=== PATIENT | female | born 1965 | race Caucasian/White ===

== ENCOUNTER 2019-09-24 10:54 | Inpatient (IN) | payer OTHER ==
--- NOTE | 2019-09-24 10:59 | PDOC ---
History of Present Illness - General Chief Complaint: Seizure Stated Complaint: BITIING LIPS? Time Seen by Provider: 09/24/19 10:58 History Source: Patient, Family Exam Limitations: No Limitations - History of Present Illness Initial Comments: 54 yo F history HL (diet-controlled) presents with multiple episodes of AMS. As per family at bedside, on two occasions since yesterday they have witnessed her chewing her upper lip but not responding when they spoke to her. She does not recall either event, she states she thought she was sleeping. She has mild swelling of the upper lip, but denies any pain at present. Denies any falls, no other injuries. Each time it happened, a family member witnessed it, tried to interact with her, but she was not responsive. No history of seizures. Denies any headache. No AM headaches when she wakes up. No weakness, numbness, vision changes. No recent illness. Past History - Past Medical History Allergies/Adverse Reactions: Allergies Allergy/AdvReac Type Severity Reaction Status Date / Time No Known Allergies Allergy Verified 09/24/19 10:56 Home Medications: Ambulatory Orders levETIRAcetam [Keppra -] 500 mg PO BID #60 tablet 09/24/19 Review of Systems - Review of Systems Able to Perform ROS?: Yes Comments:: GENERAL/CONSTITUTIONAL: No fever or chills. No weakness. HEAD, EYES, EARS, NOSE AND THROAT: No change in vision. No ear pain or discharge. No sore throat. CARDIOVASCULAR: No chest pain or shortness of breath. RESPIRATORY: No cough, wheezing, or hemoptysis. GASTROINTESTINAL: No nausea, vomiting, diarrhea or constipation. GENITOURINARY: No dysuria, frequency, or change in urination. MUSCULOSKELETAL: No joint or muscle swelling or pain. No neck or back pain. SKIN: No rash. NEUROLOGIC: No headache, vertigo, loss of consciousness, or change in strength/ sensation. ENDOCRINE: No increased thirst. No abnormal weight change. HEMATOLOGIC/LYMPHATIC: No anemia, easy bleeding, or history of blood clots. ALLERGIC/IMMUNOLOGIC: No hives or skin allergy. *Physical Exam - Physical Exam GENERAL: Awake, alert, and fully oriented, in no acute distress HEAD: No signs of trauma EYES: PERRLA, EOMI, sclera anicteric, conjunctiva clear ENT: Auricles normal inspection, hearing grossly normal, nares patent, oropharynx clear without exudates. Moist mucosa. +Mild swelling of the upper lip on R side, no open lesions. NECK: Normal ROM, supple, no lymphadenopathy, JVD, or masses LUNGS: Breath sounds equal, clear to auscultation bilaterally. No wheezes, and no crackles HEART: Regular rate and rhythm, normal S1 and S2, no murmurs, rubs or gallops ABDOMEN: Soft, nontender, normoactive bowel sounds. No guarding, no rebound. No masses EXTREMITIES: Normal range of motion, no edema. No clubbing or cyanosis. No cords, erythema, or tenderness NEUROLOGICAL: Cranial nerves II through XII grossly intact. Normal speech, normal gait. Motor and sensation intact SKIN: Warm, dry, normal turgor, no rashes or lesions noted. Heart Score/ECG Review - ECG Impressions Comment:: EKG read 12:15- NSR [address]/T changes ED Treatment Course - LABORATORY CBC & Chemistry Diagram: 09/24/19 11:34 09/24/19 11:34 Medical Decision Making - Medical Decision Making 09/24/19 11:15 Symptoms are suspicious for new onset seizures. Will obtain labs, CTH, and will d/w neurology. 09/24/19 12:[address] Jung. 09/24/19 13:39 Case d/w Dr. Jung, recommended starting patient on keppra. Will have her f/u in his office. Also recommended that she not drive until she is evaluated and properly on medication. Will d/w patient and family. 09/24/19 13:59 Pt experienced another partial seizure just now. Self-limited. Ativan given now. IV fluids and keppra given. 09/24/19 15:23 Case d/w Dr. Caldwell, will admit in light of multiple seizures over the past 24 hours, no prior history. Discharge - Discharge Information Problems reviewed: Yes Clinical Impression/Diagnosis: New onset seizure Condition: Stable - Admission Yes - Additional Discharge Information Prescriptions: levETIRAcetam [Keppra -] 500 mg PO BID #60 tablet - Follow up/Referral Referrals: David Jung MD [Staff Physician] - - Patient Discharge Instructions Patient Printed Discharge Instructions: DI for Seizure (Not Epilepsy/Seizure Disorder) Additional Instructions: Please call Dr. Jung's office on Thursday to schedule an appointment. If the seizures return, please return to the ER immediately. Take the medication as prescribed, as it should suppress the seizures. Llame a la oficina del Dr. Jung el es para programar lela payton. Si las convulsiones regresan, regrese a la jm de emergencias inmediatamente. [place] el medicamento segn lo prescrito, ya que debera suprimir las convulsiones. - Post Discharge Activity
[2019-09-24 11:49] LABS: BASO % 0.2 % (0-2.0); EOS % 0.4 % (0-4.5); HEMATOCRIT 39.3 % (32.4-45.2); HEMOGLOBIN 13.1 GM/dl (10.7-15.3); MCH 31.1 pg (25.7-33.7); MCHC 33.2 g/dl (32.0-36.0); MEAN CELL VOLUME 93.8 fl (80-96); MEAN PLT VOLUME 8.3 fl (7.5-11.1); NEUT % 83.4 % (42.8-82.8); PLATELET COUNT 311 K/MM3 (134-434); RDW 12.5 % (11.6-15.6); WHITE BLOOD COUNT 7.6 K/mm3 (4.0-10.8)
[2019-09-24 11:53] LABS: INR 1.13 (0.82-1.09); PROTHROMBIN TIME (PATIENT) 12.6 SEC (10.2-13.0)
[2019-09-24 11:58] LABS: ALBUMIN 4.2 g/dl (3.4-5.0); BILIRUBIN,TOTAL 0.9 mg/dl (0.2-1); CREATININE 0.6 mg/dl (0.55-1.3); TOT PROT 7.7 g/dl (6.4-8.2)
[2019-09-24] MEDS ORDERED: levETIRAcetam 500 MG TABLET (FP) PO ONE ×2 (13:35→13:36)
[2019-09-24] MEDS ORDERED: LORazepam 2 MG/ML SDV VIAL ONE (13:57)
[2019-09-24] MEDS ORDERED: levETIRAcetam 500 MG/5 ML INJECTION VIAL IVPB ONE (13:58)
[2019-09-24] MEDS ORDERED: SODIUM CHLORIDE 1,000 ML IV STA (13:59)
[2019-09-24] MEDS ORDERED: ONDANSETRON 4 MG/2 ML VIAL IVPUSH PRN (15:33)
--- NOTE | 2019-09-24 15:37 | PN ---
Progress Note, Physician Chief Complaint: New onset seizure History of Present Illness: 54 years old female no significant past medical history, today presents with the family as per family patient has multiple episodes of altered mental status yesterday, family witnessed her chewing her upper lip, patient unable to recall any event and she thought that she was sleeping patient has mild swelling of the upper lip but denies any pain or swelling, no head trauma, no toxic epi denies any fever, patient denies any headache nausea vomiting visual changes or any focal neuro or sensory weakness, in the ED neurology was consulted recommended discharge the patient on p.o. Keppra but she had a witnessed seizure so being admitted for further evaluation, in the ED CBC, BMP, CT head, liver functions are normal. - Objective Vital Signs: Vital Signs Temperature 98.5 F 09/24/19 13:29 Pulse Rate 72 09/24/19 15:15 Respiratory Rate 16 09/24/19 15:15 Blood Pressure 105/66 09/24/19 15:15 O2 Sat by Pulse Oximetry (%) 100 09/24/19 15:15 Labs: CBC, BMP 09/24/19 11:34 09/24/19 11:34 INR, PTT INR 1.13 (0.82-1.09) 09/24/19 11:34
--- NOTE | 2019-09-24 15:43 | HP ---
Admitting History and Physical - Admission Chief Complaint: Episodes of altered mental status with spontaneous lip chewing History of Present Illness: 54 years old female no significant past medical history, today presents with the family as per family patient has 2 episodes of altered mental status as per son today am , he witnessed her chewing her upper lip subsequently became confused and disoriented for some time after that after that she had second episode patient unable to recall any event and she thought that she was sleeping patient has mild swelling of the upper lip but denies any pain as per son for past 1 year patient has been having spells of disorientation, no H/O head trauma, fever, , incontinence or focal motor weakness, patient denies any headache nausea vomiting visual changes or any focal motor or sensory weakness, in the ED neurology was consulted recommended discharge the patient on p.o. Keppra but she had a witnessed seizure so being admitted for further evaluation , in the ED CBC, BMP, CT head, liver functions are normal. History Source: Patient, Family Member - Smoking History Smoking history: Never smoked Have you smoked in the past 12 months: No - Alcohol/Substance Use Hx Alcohol Use: No Home Medications - Allergies Allergies/Adverse Reactions: Allergies Allergy/AdvReac Type Severity Reaction Status Date / Time No Known Allergies Allergy Verified 09/24/19 10:56 - Home Medications Home Medications: Ambulatory Orders levETIRAcetam [Keppra -] 500 mg PO BID #60 tablet 09/24/19 Family Medical History Family Hx Cardiac Disorders: Mother Family Hx Diabetes: Father Review of Systems - Review of Systems Constitutional: reports: Malaise. denies: Chills, Diaphoresis, Fever, Lethargy Eyes: reports: Other (Confusion episodes). denies: Blind Spots, Blurred Vision , Double Vision, Eye Pain, Floaters, Photophobia, Recent Change in Vision HENT: denies: Difficult Swallowing, Ear Discharge Neck: denies: Decreased ROM, Lumps, Pain on Movement, Stiffness Cardiovascular: denies: Chest Pain, Edema, Palpitations, Shortness of Breath Respiratory: denies: Cough, Exercise Intolerance, Hemoptysis, Orthopnea Gastrointestinal: denies: Abdominal Pain, Bloating, Constipation, Diarrhea Genitourinary: denies: Burning, Discharge, Dysuria, Flank Pain, Frequency, Incontinence, Lesions, Menses, Pain Musculoskeletal: denies: Back Pain, Crepitus, Decreased ROM, Extremity Pain Integumentary: denies: Blister, Bruising, Change in Color Neurological: reports: Change in LOC, Confusion, Seizure. denies: Change in Speech, Headache, Incoordination, Numbness Endocrine: denies: Excessive Sweating, Flushing, Increased Hunger Hematology/Lymphatic: denies: Easily Bruised, Excessive Bleeding, Swollen Glands Physical Examination Vital Signs: Vital Signs Temperature 98.5 F 09/24/19 13:29 Pulse Rate 72 09/24/19 15:15 Respiratory Rate 16 09/24/19 15:15 Blood Pressure 105/66 09/24/19 15:15 O2 Sat by Pulse Oximetry (%) 100 09/24/19 15:15 General: Middle-aged female , sleeping comfortable, not in distress HEENT; Swelling of upper ;ip, mucous membranes moist, no anemia, no jaundice, PERRLA, no nystagmus Neck: No JVD, supple, no bruit, thyroid palpably normal, normal carotid pulsations. Chest: Non-tender, clear to auscultation bilaterally CVS: S1-S2 regular no murmur/gallop/rub Abdomen: Non-distended, soft, bowel sounds present. Extremities: No edema., No cough tenderness, pulses present [facility] ATTENDANT: Confused droqwsy, , no gross motor sensory deficit Labs: CBC, BMP 09/24/19 11:34 09/24/19 11:34 CBC,CMP WBC 7.6 K/mm3 (4.0-10.8) 09/24/19 11:34 RBC 4.20 M/mm3 (3.60-5.2) 09/24/19 11:34 Hgb 13.1 GM/dl (10.7-15.3) 09/24/19 11:34 Hct 39.3 % (32.4-45.2) 09/24/19 11:34 MCV 93.8 fl (80-96) 09/24/19 11:34 MCH 31.1 pg (25.7-33.7) 09/24/19 11:34 MCHC 33.2 g/dl (32.0-36.0) 09/24/19 11:34 RDW 12.5 % (11.6-15.6) 09/24/19 11:34 Plt Count 311 K/MM3 (134-434) 09/24/19 11:34 MPV 8.3 fl (7.5-11.1) 09/24/19 11:34 Absolute Neuts (auto) 6.4 K/mm3 09/24/19 11:34 Neutrophils % 83.4 % (42.8-82.8) H 09/24/19 11:34 Lymphocytes % 13.0 % (8-40) 09/24/19 11:34 Monocytes % 3.0 % (3.8-10.2) L 09/24/19 11:34 Eosinophils % 0.4 % (0-4.5) 09/24/19 11:34 Basophils % 0.2 % (0-2.0) 09/24/19 11:34 Sodium 132 mmol/L (136-145) L 09/24/19 11:34 Potassium 4.0 mmol/L (3.5-5.1) 09/24/19 11:34 Chloride 102 mmol/L (98-107) 09/24/19 11:34 Carbon Dioxide 25 mmol/L (21-32) 09/24/19 11:34 Anion Gap 5 MMOL/L (8-16) L 09/24/19 11:34 BUN 12.0 mg/dl (7-18) 09/24/19 11:34 Creatinine 0.6 mg/dl (0.55-1.3) 09/24/19 11:34 Est GFR (CKD-EPI)AfAm 118.93 09/24/19 11:34 Est GFR (CKD-EPI)NonAf 102.61 09/24/19 11:34 Random Glucose 108 mg/dl (74-106) H 09/24/19 11:34 Calcium 9.0 mg/dl (8.5-10) 09/24/19 11:34 Magnesium 2.0 mg/dL (1.8-2.4) 09/24/19 11:34 Total Bilirubin 0.9 mg/dl (0.2-1) 09/24/19 11:34 AST 25 U/L (15-37) 09/24/19 11:34 ALT 25 U/L (13-61) 09/24/19 11:34 Alkaline Phosphatase 90 U/L (45-117) 09/24/19 11:34 Troponin I < 0.03 ng/ml (0.00-0.05) 09/24/19 11:34 Total Protein 7.7 g/dl (6.4-8.2) 09/24/19 11:34 Albumin 4.2 g/dl (3.4-5.0) 09/24/19 11:34 TSH 1.84 uIU/ml (0.358-3.74) 09/24/19 11:34 Imaging - Results Cat Scan: Report Reviewed (Head no acute change) EKG: Report Reviewed (73 normal axis QTC [address] t changes) Problem List - Problems (1) New onset seizure Assessment/Plan: Patient presents with new onset seizure, most likely partial complex /temporal lobe no-nfocal neuro exam, no fever, no focal motor weakness,CT haed unremarkable in the ED loaded with Keppra will continue Keppra 5 mg twice daily , keep n.p.o., seizure precautions, will follow neurology recommendation, lorazepam 2 mg q. as needed for seizure activity, D5 half-normal saline follow- up CBC BMP, follow-up prolactin level. Patient needs MRI and EEG. Problems reviewed: Yes Code(s): R56.9 - UNSPECIFIED CONVULSIONS
[2019-09-24] MEDS ORDERED: D5-1/2NS+10 MEQ KCL - 10 MEQ/1,000 ML INFUS.BAG IV SCH (15:45)
[2019-09-24 17:22] VITALS: BMI 25.8
[2019-09-24] MEDS ORDERED: LORazepam 2 MG/ML SDV VIAL IVPUSH PRN (20:33)
[2019-09-24] MEDS: levETIRAcetam 500 MG TABLET (FP) PO SCH (21:39)
--- NOTE | 2019-09-25 08:57 | PN ---
Progress Note, Physician Chief Complaint: Patient is alert oriented x3, overnight no seizures, patient wants to eat food History of Present Illness: 54 years old female no significant past medical history, today presents with the family as per family patient has 2 episodes of altered mental status as per son today am , he witnessed her chewing her upper lip subsequently became confused and disoriented, overnight remained stable seizure-free alert oriented x3 now - Current Medication List Current Medications: Active Medications Potassium Chloride/Dextrose/Sod Cl (D5-1/2ns+10 Meq Kcl -) 10 meq in 1,000 mls @ 100 mls/hr IV ASDIR [facility] Last Admin: 09/24/19 18:55 Dose: 100 mls/hr Levetiracetam (Keppra -) 500 mg PO BID [facility] Last Admin: 09/24/19 21:39 Dose: 500 mg Lorazepam (Ativan Injection -) 2 mg IVPUSH TID PRN PRN Reason: AGITATION Ondansetron HCl (Zofran Injection) 4 mg IVPUSH Q6H PRN PRN Reason: NAUSEA Pantoprazole Sodium (Protonix Iv) 40 mg IVPUSH DAILY [facility] - Objective Vital Signs: Vital Signs Temperature 98.6 F 09/25/19 08:17 Pulse Rate 83 09/25/19 08:17 Respiratory Rate 18 09/25/19 08:17 Blood Pressure 110/50 L 09/25/19 08:17 O2 Sat by Pulse Oximetry (%) 94 L 09/24/19 22:00 Labs: CBC, BMP 09/24/19 11:34 09/24/19 11:34 INR, PTT INR 1.13 (0.82-1.09) 09/24/19 11:34 Problem List - Problems (1) New onset seizure Assessment/Plan: Patient presents with new onset seizure, most likely partial complex /temporal lobe no-nfocal neuro exam, no fever, no focal motor weakness,CT head unremarkable in the ED loaded with Keppra will continue Keppra 500 mg twice daily, continue neuro check, follow-up neurology recommendations follow-up CBC BMP, follow-up prolactin level. Patient needs MRI and EEG. Code(s): R56.9 - UNSPECIFIED CONVULSIONS
[2019-09-25 09:31] LABS: BASO % 0.4 % (0-2.0); EOS % 3.6 % (0-4.5); HEMATOCRIT 35.2 % (32.4-45.2); HEMOGLOBIN 11.8 GM/dl (10.7-15.3); MCH 31.7 pg (25.7-33.7); MCHC 33.5 g/dl (32.0-36.0); MEAN CELL VOLUME 94.8 fl (80-96); MEAN PLT VOLUME 8.9 fl (7.5-11.1); MONO % 6.3 % (3.8-10.2); NEUT % 55.7 % (42.8-82.8); PLATELET COUNT 257 K/MM3 (134-434); RBC 3.72 M/mm3 (3.60-5.2); RDW 12.1 % (11.6-15.6); WHITE BLOOD COUNT 6.5 K/mm3 (4.0-10.8)
[2019-09-25 09:38] LABS: ALBUMIN 3.3 g/dl (3.4-5.0); BILIRUBIN,TOTAL 1.3 mg/dl (0.2-1); CALCIUM 8.7 mg/dl (8.5-10); CREATININE 0.6 mg/dl (0.55-1.3); POTASSIUM 4.3 mmol/L (3.5-5.1); TOT PROT 6.2 g/dl (6.4-8.2)
[2019-09-25 09:44] LABS: CHOLESTEROL 165 mg/dl (50-200); HDL CHOLESTEROL 35 mg/dl (40-60); TRIGLYCERIDES 126 mg/dl (0-150)
[2019-09-25 09:48] LABS: LDL CHOLESTEROL (ONLY SJRH) 105 mg/dL (5-100)
--- NOTE | 2019-09-25 09:59 | EKG ---
Test Reason : Blood Pressure : / mmHG Vent. Rate : 073 BPM Atrial Rate : 073 BPM P-R Int : 174 ms QRS Dur : 086 ms QT Int : 390 ms P-R-T Axes : 022 -04 038 degrees QTc Int : 429 ms NORMAL SINUS RHYTHM NORMAL ECG NO PREVIOUS ECGS AVAILABLE Confirmed by ALEXIS NUNEZ MD ([id number]) on 09/25/2019 9:58:41 AM Referred By: DR ZACARIAS Confirmed By:ALEXIS NUNEZ MD
[2019-09-25] MEDS ORDERED: PANTOPRAZOLE SODIUM 40 MG VIAL IVPUSH SCH (10:00)
[2019-09-25] MEDS: levETIRAcetam 500 MG TABLET (FP) PO SCH (10:12)
[2019-09-25 14:12] VITALS: BP 114/62; PULSE 84; TEMP 99
--- NOTE | 2019-09-25 15:24 | CONSULT ---
Consult - text type - Consultation Consultation Note: NEUROLOGY CONSULTATION is greatly appreciated: Even reviewed and discussed with ED and Conner Flower. Patient examined with her son and daughter at the bedside who aid in translation. This 54 yo RH marred woman lives with her and son. She works in the [employer] business. PMH sig. for high cholesterol for which she was medicated early last year, but resolved with weight loss. Family relates Patient has had 1 1/2 years of slowly progressive memory loss. She repeats herself and needs reminders at work. However, she remains independent in ADL's and household responsibilities. - FH of Dementia. Yesterday had onset of stereotyped spells characterized by staring, unresponsiveness and chewing on her tongue lasting about 1 min. 4 episodes were witnessed by her in bed soon after awakening. Her children then saw 1 and 1 recurred in the ED. Given ativan and levetiracetam 1 gm IV and episodes have not recurred. Diurnal episodes occurred without warning. CT of head (reviewed): Essentially normal study. Hyperostosis. .6 mm left high parietal calcification not clearly adjacent to the falx or calvarium. CHRIS: Neck supple. No external head trauma. Cor reg. No bruits.Short stature. [facility]: [facility] [place], But does recall 3 of 3 at 3 mins. No frontal release findings. Speech fluent. CN II-XII: Normal Motor: No drift or tremor. Normal strength, tone, bulk and reflexes. Toes downgoing. Coord: No FTN dysaxia Sensory: Normal. Romberg - Gait: Normal IMP: Mild B/L cerebral dysfunction. May represent early ALzheimer's (AD) New onset seizure disorder. Precise seizure type uncertain. 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 Etiology uncertain. May be related to the memory decline. R/O Cystercercosis (isolated left parietal calcification). SUGGEST: Continue Levetiracetam 500 mg PO BId. Check B12, TSH, RPR. MRI of brain (C-/C+) EEG and neuro f/u (can be done on out patient basis). Thank you very much, David Jung MD
--- NOTE | 2019-09-25 17:21 | DS ---
Physical Examination Vital Signs: Vital Signs Temperature 99 F 09/25/19 14:10 Pulse Rate 84 09/25/19 14:10 Respiratory Rate 16 09/25/19 14:10 Blood Pressure 114/62 09/25/19 14:10 O2 Sat by Pulse Oximetry (%) 97 09/25/19 14:10 General: Middle-aged female , pleasnt, comfortable, not in distress HEENT; Swelling of upper ;ip, mucous membranes moist, no anemia, no jaundice, PERRLA, no nystagmus Neck: No JVD, supple, no bruit, thyroid palpably normal, normal carotid pulsations. Chest: Non-tender, clear to auscultation bilaterally CVS: S1-S2 regular no murmur/gallop/rub Abdomen: Non-distended, soft, bowel sounds present. Extremities: No edema., No cough tenderness, pulses present [employer]OL [employer] APPRENTICE:AO x3 non focal Labs: CBC, BMP 09/25/19 07:00 09/25/19 07:00 Discharge Summary Problems reviewed: Yes Reason For Visit: NEW ONSET SEIZURE Current Active Problems New onset seizure (Acute) Hospital Course: 54 years old female no significant past medical history, today presents with the family as per family patient has 2 episodes of altered mental status, patient had third episode in the ED so admitted for evaluation, patient loaded with Keppra, remained seizure-free since hospitalization, patient is alert oriented tolerating p.o., CT head and CBC BMP TSH are normal, patient is evaluated by neurology consult as patient family wants to take her home will DC patient with close follow-up with Dr. Erich Hernandez the neurology consult, patient needs EEG and MRI as an outpatient. Condition: Stable - Instructions Diet, Activity, Other Instructions: Regular Please visit to ED if recurrence of seizure or altered mental status otherwise follow-up with Dr. Tony alcantara on Thursday to arrange outpatient MRI and EEG. Referrals: David Jung MD [Staff Physician] - 09/26/19 Disposition: HOME - Home Medications Comprehensive Discharge Medication List: Ambulatory Orders levETIRAcetam [Keppra -] 500 mg PO BID #60 tablet 09/24/19 levETIRAcetam [Keppra -] 500 mg PO BID 30 Days #60 tablet 09/25/19
== END 2019-09-25 18:57 | disposition home or self-care (01) | DRG 53 ==
LOC: FER 10:54 → FM/S 15:23
PROVIDERS: ADMIT Internal Medicine; ATTEND Nurse Practitioner Acute Care
DX: G40.909 Epilepsy, unspecified, not intractable, without status epilepticus (principal); G30.9 Alzheimer's disease, unspecified
CPT/HCPCS: 36415; 70450-TC; 80053; 80061; 81003; 82607; 83036; 83721; 83735; 84146; 84443; 84484; 85025; 85610; 86850; 86900; 86901; 93005; 99285-25; J7030